=== PATIENT | male | born 1960 | race Hispanic/Latino ===

== ENCOUNTER 2024-09-21 07:19 | Emergency (ER) | payer BC ==
[2024-09-21 08:03] LABS: Specific Gravity 1.012 (1.005-1.030); Sqamous Epithelial <5 /HPF (None Seen); Urine Bacteria None Seen /HPF (<20); Urine Bilirubin NEGATIVE (Negative); Urine Blood 3+ (Negative); Urine Clarity Turbid (Clear); Urine Color Light-Yellow (Yellow); Urine Culture Reflex Order NOT NEEDED; Urine Glucose NEGATIVE (Negative); Urine Ketones NEGATIVE (Negative); Urine Microscopic Reflex YN ORDER UMIC; Urine Mucus Slight /HPF (None Seen); Urine Nitrite NEGATIVE (Negative); Urine Protein NEGATIVE (Negative); Urine RBC >50 /HPF (None Seen); Urine Urobilinogen Normal (Normal); Urine WBC <5 /HPF (<5)
--- NOTE | 2024-09-21 08:45 | ER ---
Nurse's Notes [facility] Name: Davonte Sagastume Age: 64 yrs Sex: Male : 1960 Arrival Date: 09/21/2024 Time: 07:19 Bed 6 Private MD: Diagnosis: Retention of urine, unspecified Presentation: 09/21 07:42 Chief complaint: Patient states: unable to urinate since yesterday. Coronavirus screen: iw At this time, the client does not indicate any symptoms associated with coronavirus-19. Ebola Screen: No symptoms or risks identified at this time. Initial Sepsis Screen: Does the patient meet any 2 criteria? No. Patient's initial sepsis screen is negative. Does the patient have a suspected source of infection? No. Patient's initial sepsis screen is negative. Risk Assessment: Do you want to hurt yourself or someone else? Patient reports no desire to harm self or others. Onset of symptoms was September 21, 2024. 07:42 Acuity: LENA 3 iw 07:42 Method Of Arrival: Ambulatory iw Historical: - Allergies: 07:43 No Known Allergies; iw - PMHx: 07:43 Hypercholesterolemia; Hypertensive disorder; enlarged prostate; iw - Immunization history:: Adult Immunizations up to date. - Infectious Disease History:: Denies. - Family history:: not pertinent. - Social history:: Smoking status: unknown. - Hospitalizations: : No recent hospitalization is reported. Screenin:37 [facility] ED Fall Risk Assessment (Adult) History of falling in the last 3 months, kc6 including since admission No falls in past 3 months (0 pts) Confusion or Disorientation No (0 pts) Intoxicated or Sedated No (0 pts) Impaired Gait No (0 pts) Mobility Assist Device Used No (0 pt) Altered Elimination No (0 pt) Score/Fall Risk Level 0 - 2 = Low Risk Oriented to surroundings, Maintained a safe environment, Educated pt \T\ family on fall prevention, incl call for assistance when getting out of bed. Abuse screen: Denies threats or abuse. Denies injuries from another. Nutritional screening: No deficits noted. Tuberculosis screening: No symptoms or risk factors identified. Assessment: 07:37 General: Appears in no apparent distress. uncomfortable, well groomed, well developed, kc6 Behavior is calm, cooperative, appropriate for age, restless. Pain: Complains of pain in pelvis. Neuro: Level of Consciousness is awake, alert, obeys commands, Oriented to person, place, time, situation, Appropriate for age. Cardiovascular: Capillary refill < 3 seconds. Respiratory: Airway is patent Trachea midline Respiratory effort is even, unlabored, Respiratory pattern is regular, symmetrical. GI: No signs and/or symptoms were reported involving the gastrointestinal system. : Reports cramping, inability to void, since yesterday pain in suprapubic area. EENT: No signs and/or symptoms were reported regarding the EENT system. Derm: No signs and/or symptoms reported regarding the dermatologic system. Skin is intact, is healthy with good turgor, Skin is pink, warm \T\ dry. Musculoskeletal: No signs and/or symptoms reported regarding the musculoskeletal system. Circulation, motion, and sensation intact. Range of motion: intact in all extremities. 10:03 Reassessment: Patient appears in no apparent distress at this time. Patient and/or ph family updated on plan of care and expected duration. Pain level reassessed. Patient is alert, oriented x 3, equal unlabored respirations, skin warm/dry/pink. Pt d/c home w/ Chase and leg bag in place, states that he will be following up w/ urology. Vital Signs: 07:48 BP 134 / 77; Pulse 66; Resp 16 S; Temp 98.3(O); Pulse Ox 95% on R/A; kc6 10:03 BP 134 / 78; Pulse 65; Resp 18; Temp 97.9; Pulse Ox 98% on R/A; ph ED Course: 07:22 Patient arrived in ED. im 07:22 Marvin Vela MD is Attending Physician. rn 07:33 Rosa M Duke, LUCRETIA is Primary Nurse. kc6 07:36 Patient has correct armband on for positive identification. Placed in gown. Bed in low kc6 position. Call light in reach. Side rails up X 1. Adult w/ patient. Pulse ox on. NIBP on. Door closed. Noise minimized. Lights dimmed. Warm blanket given. Pillow given. 07:38 Patient maintains SpO2 saturation greater than 95% on room air. kc6 07:42 Triage completed. iw 07:42 Chase cath inserted, using sterile technique, 16 Fr., by al, balloon inflated, to iw gravity drainage, urine specimen collected. 07:48 Arm band placed on. kc6 10:03 No provider procedures requiring assistance completed. Patient did not have IV access ph during this emergency room visit. 20:40 16 Fr removed due to excessive urine leakage. Chase intact. 18Fr inserted. balloon lg3 inflated to gravity drainage. Pt tolerated well. no leakage noted. 20:54 Attending Physician role handed off by Marvin Vela MD lg3 20:54 Primary Nurse role handed off by Rosa M Duke RN lg3 Administered Medications: No medications were administered Medication: 10:04 VIS not applicable for this client. ph Output: 08:00 Urine: 600ml (Chase); Total: 600ml. kc6 Outcome: 08:44 Discharge ordered by . rn 10:03 Discharged to home ambulatory, with family, ph 10:03 Condition: good 10:04 Discharge instructions given to patient, significant other, Instructed on discharge ph instructions, follow up and referral plans. medication usage, Demonstrated understanding of instructions, follow-up care, medications, Prescriptions given X 1, 10:04 Patient left the ED. ph 20:56 Patient left the ED. lg3 Signatures: Joy Ibrahim, RN RN Marvin Vela MD MD rn Hall, Patricia, RN RN ph Able, Lacie, RN RN lg3 Rosa M Duke RN RN kc6 Monique Calabrese
--- NOTE | 2024-09-21 08:45 | EDPHYS ---
Physician Documentation [facility] Name: Davonte Sagastume Age: 64 yrs Sex: Male : 1960 Arrival Date: 09/21/2024 Time: 07:19 Bed 6 Private MD: ED Physician HPI: 09/21 07:35 This 64 yrs old Male presents to ER via Unassigned with complaints of Urinary rn Problem. 07:35 The patient presents with urinary symptoms, unable to void. Onset: The symptoms/episode rn began/occurred this morning. Modifying factors: The symptoms are alleviated by nothing, the symptoms are aggravated by nothing. Severity of symptoms: At their worst the symptoms were moderate, in the emergency department the symptoms are unchanged. The patient has experienced similar episodes in the past. Pt reports unable to urinate since last night, dribbling this morning, no hematuria, has happened twice before, diagnosed with enlarged prostate, has had castro catheter in past. Not taking flomax. Has had prostate biopsies in past and were normal. . Historical: - Allergies: 07:43 No Known Allergies; iw - PMHx: 07:43 Hypercholesterolemia; Hypertensive disorder; enlarged prostate; iw - Immunization history:: Adult Immunizations up to date. - Infectious Disease History:: Denies. - Family history:: not pertinent. - Social history:: Smoking status: unknown. - Hospitalizations: : No recent hospitalization is reported. ROS: 07:35 Constitutional: Negative for fever, chills, and weight loss, Cardiovascular: Negative rn for chest pain, palpitations, and edema, Respiratory: Negative for shortness of breath, cough, wheezing, and pleuritic chest pain, Abdomen/GI: + suprapubic abd pain with constipation Back: Negative for injury and pain, : + urinary retention Neuro: Negative for headache, weakness, numbness, tingling, and seizure, Exam: 07:37 Constitutional: Patient ambulatory to room without assistance, appears uncomfortable, rn pacing in room Cardiovascular: Regular rate and rhythm. No pulse deficits. Abdomen/GI: Soft, nontender, no guarding or peritoneal signs. Neuro: Awake and alert, GCS 15, oriented to person, place, time, and situation. Motor strength 5/5 in all extremities. Sensory grossly intact. Normal gait. Vital Signs: 07:48 BP 134 / 77; Pulse 66; Resp 16 S; Temp 98.3(O); Pulse Ox 95% on R/A; kc6 10:03 BP 134 / 78; Pulse 65; Resp 18; Temp 97.9; Pulse Ox 98% on R/A; ph MDM: 07:22 Medical Screening Exam initiated rn 08:42 Differential diagnosis: UTI, urinary retention. Data reviewed: vital signs, nurses rn notes, lab test result(s), and as a result, I will discharge patient. Counseling: I had a detailed discussion with the patient and/or guardian regarding the historical points, exam findings, and any diagnostic results supporting the discharge/admit diagnosis, lab results, the need for outpatient follow up, to return to the emergency department if symptoms worsen or persist or if there are any questions or concerns that arise at home. Response to treatment: the patient's symptoms have markedly improved after treatment, the patient's symptoms have resolved after treatment, the patient's condition has returned to base line, the patient is now symptom free, and as a result, I will discharge patient. Special discussion: I discussed with the patient/guardian in detail that at this point there is no indication for admission to the hospital. It is understood, however, that if the symptoms persist or worsen the patient needs to return immediately for re-evaluation. Based on the history and exam findings, there is no indication for further emergent testing or inpatient evaluation. I discussed with the patient/guardian the need to see the urologist for further evaluation of the symptoms. ED course: Patient markedly improved after Castro catheter placement. Resting comfortably and sleeping. Will discharge home with Flomax and patient states has follow-up appointment scheduled.. 09/21 07:37 Order name: Urinalysis w/ reflexes; Complete Time: 08:04 rn 09/21 07:34 Order name: Castro; Complete Time: 07:36 rn Administered Medications: No medications were administered Disposition Summary: 09/21/24 08:44 Discharge Ordered Notes: Location: Home rn Problem: new rn Symptoms: have improved rn Condition: Stable rn Diagnosis - Retention of urine, unspecified rn Followup: rn - With: Private Physician - When: As needed - Reason: Recheck today's complaints, Re-evaluation by your physician Discharge Instructions: - Discharge Summary Sheet rn - Indwelling Urinary Catheter Care, Adult rn - Acute Urinary Retention, Male rn Forms: - Work release form iw - Medication Reconciliation Form rn - Antibiotic journalists and other writers - Prescription Opioid Use rn - Patient Portal Instructions rn - Leadership Thank You Letter rn Prescriptions: - Flomax 0.4 mg Oral capsule - take 1 capsule ORAL route every 24 hours; 30 capsule; Refills: 0, Product rn Selection Permitted Signatures: Dispatcher [employer] EDJoy Hernández, RN Marvin Mcfarland MD MD rn Campbell, Kaitlyn, RN RN kc6 Corrections: (The following items were deleted from the chart) 07:37 07:37 Urinalysis+U.LAB.BRZ ordered. [facility] EDSD 07:38 07:35 Constitutional: Negative for fever, chills, and weight loss, Cardiovascular: rn Negative for chest pain, palpitations, and edema, Respiratory: Negative for shortness of breath, cough, wheezing, and pleuritic chest pain, Abdomen/GI: Negative for abdominal pain, nausea, vomiting, diarrhea, and constipation, rn :38 07:35 Constitutional: Negative for fever, chills, and weight loss, Cardiovascular: rn Negative for chest pain, palpitations, and edema, Respiratory: Negative for shortness of breath, cough, wheezing, and pleuritic chest pain, Abdomen/GI: + suprapubic abd pain with constipation : + urinary retention rn :38 07:37 Constitutional: This is a well developed, well nourished patient who is awake, rn alert, and in no acute distress. rn
[2024-09-21 10:34] VITALS: BP 134/78; TEMP 97.9; O2SAT 98
== END 2024-09-21 20:56 | disposition home or self-care (01) ==
LOC: ER 07:19
DX: R33.9 Retention of urine, unspecified (principal)
CPT/HCPCS: 81001

== ENCOUNTER 2024-09-22 12:11 | Emergency (ER) | payer BC ==
--- NOTE | 2024-09-22 13:46 | EDPHYS ---
Physician Documentation [facility] Name: Davonte Sagastume Age: 64 yrs Sex: Male : 1960 Arrival Date: 09/22/2024 Time: 12:11 Bed 9 Private MD: ED Physician Marivn Vela HPI: 09/22 13:43 This 64 yrs old Male presents to ER via Ambulatory with complaints of Urinary rn Problem. 13:43 The patient presents with a Chase catheter problem, is not draining. Onset: The rn symptoms/episode began/occurred today. Modifying factors: The symptoms are alleviated by nothing, the symptoms are aggravated by nothing. Associated signs and symptoms: Pertinent negatives: fever, hematuria. Severity of symptoms:. The patient has not experienced similar symptoms in the past. Patient with recent Chase catheter placement here in the ER due to prostate problems. Reports today not draining urine and is concerned that the tubing is clogged. He has not noticed any blood. No fever or chills. Otherwise denies any abdominal pain.. Historical: - Allergies: 12:15 No Known Allergies; ll1 - PMHx: 12:15 enlarged prostate; Hypercholesterolemia; Hypertensive disorder; ll1 - Immunization history:: Adult Immunizations up to date. - Social history:: Smoking status: Patient denies any tobacco usage or history of. - Family history:: not pertinent. - Hospitalizations: : No recent hospitalization is reported. ROS: 13:43 Constitutional: Negative for fever, chills, and weight loss, Abdomen/GI: Negative for rn abdominal pain, nausea, vomiting, diarrhea, and constipation, : Reports Chase catheter not draining Exam: 13:43 Constitutional: This is a well developed, well nourished patient who is awake, alert, rn and in no acute distress. Abdomen/GI: Soft, nontender Male : Chase catheter in place, empty collection bag. Tubing appears clogged Vital Signs: 12:17 BP 167 / 86; Pulse 82; Resp 18; Temp 97.2; Pulse Ox 96% ; Pain 5/10; ll1 12:17 Pain Scale: Adult ll1 MDM: 12:22 Medical Screening Exam initiated rn 13:43 Differential diagnosis: Chase catheter problem. Data reviewed: vital signs, nurses rn notes, and as a result, I will discharge patient. Counseling: I had a detailed discussion with the patient and/or guardian regarding the historical points, exam findings, and any diagnostic results supporting the discharge/admit diagnosis, the need for outpatient follow up, to return to the emergency department if symptoms worsen or persist or if there are any questions or concerns that arise at home. Response to treatment: the patient's symptoms have resolved after treatment, and as a result, I will discharge patient. ED course: Initially distal tubing and bag replaced thinking was distal clogged, did not alleviate problems so entire Chase catheter was replaced. Small amount of blood following catheter but flushed and no clot and now draining. Will discharge home. Administered Medications: No medications were administered Disposition Summary: 09/22/24 13:45 Discharge Ordered Notes: Location: Home rn Problem: new rn Symptoms: have improved rn Condition: Stable rn Diagnosis - Other mechanical complication of urinary (indwelling) catheter rn Followup: rn - With: Private Physician - When: As needed - Reason: Recheck today's complaints, Re-evaluation by your physician Discharge Instructions: - Discharge Summary Sheet rn - Indwelling Urinary Catheter Care, Adult rn Forms: - Medication Reconciliation Form rn - Antibiotic supervisor modern languages - Prescription Opioid Use rn - Patient Portal Instructions rn - Leadership Thank You Letter rn Signatures: Marvin Vela MD MD rn Lewis, Lynsay, RN RN ll1
--- NOTE | 2024-09-22 13:46 | ER ---
Nurse's Notes [facility] Name: Davonte Sagastume Age: 64 yrs Sex: Male : 1960 Arrival Date: 09/22/2024 Time: 12:11 Bed 9 Private MD: Diagnosis: Other mechanical complication of urinary (indwelling) catheter Presentation: 09/22 12:15 Chief complaint: Patient states: Urinary catheter not draining correctly. Coronavirus ll1 screen: Client denies travel out of the [place] in the last 14 days. At this time, the client does not indicate any symptoms associated with coronavirus-19. Ebola Screen: Patient denies travel to an Ebola-affected area in the 21 days before illness onset. Initial Sepsis Screen: Does the patient meet any 2 criteria? No. Patient's initial sepsis screen is negative. Does the patient have a suspected source of infection? No. Patient's initial sepsis screen is negative. Risk Assessment: Do you want to hurt yourself or someone else? Patient reports no desire to harm self or others. Onset of symptoms was September 22, 2024. 12:15 Method Of Arrival: Ambulatory ll1 12:15 Acuity: LENA 4 ll1 Triage Assessment: 12:20 General: Appears uncomfortable, Behavior is calm, cooperative, appropriate for age. ll1 Pain: Complains of pain in pelvis Pain currently is 5 out of 10 on a pain scale. : Reports catheter not draining urine now. Historical: - Allergies: 12:15 No Known Allergies; ll1 - PMHx: 12:15 enlarged prostate; Hypercholesterolemia; Hypertensive disorder; ll1 - Immunization history:: Adult Immunizations up to date. - Social history:: Smoking status: Patient denies any tobacco usage or history of. - Family history:: not pertinent. - Hospitalizations: : No recent hospitalization is reported. Screenin:31 [facility] ED Fall Risk Assessment (Adult) History of falling in the last 3 months, jb4 including since admission No falls in past 3 months (0 pts) Confusion or Disorientation No (0 pts) Intoxicated or Sedated No (0 pts) Impaired Gait No (0 pts) Mobility Assist Device Used No (0 pt) Altered Elimination No (0 pt) Score/Fall Risk Level 0 - 2 = Low Risk Oriented to surroundings, Maintained a safe environment. Abuse screen: Denies threats or abuse. Nutritional screening: No deficits noted. Tuberculosis screening: No symptoms or risk factors identified. Assessment: 12:26 Reassessment: tried to change out leg bag, urine still not flowing properly. Had to ll1 check in as ED patient for ER physician to see him. 13:31 Reassessment: Patient appears in no apparent distress at this time. Patient and/or jb4 family updated on plan of care and expected duration. Pain level reassessed. Patient is alert, oriented x 3, equal unlabored respirations, skin warm/dry/pink. Castro changed, 20F castro in place per ER physician's instructions. No visible occlusion noted to prior castro. 14:00 Reassessment: Patient appears in no apparent distress at this time. Patient and/or jb4 family updated on plan of care and expected duration. Pain level reassessed. Patient is alert, oriented x 3, equal unlabored respirations, skin warm/dry/pink. Castro irrigated to ensure proper functioning per ER physicians instruction. While irrigating, pt able to urinate around the castro a little. Provider notified, okayed pt for discharge. Vital Signs: 12:17 BP 167 / 86; Pulse 82; Resp 18; Temp 97.2; Pulse Ox 96% ; Pain 5/10; ll1 12:17 Pain Scale: Adult ll1 ED Course: 12:14 Patient arrived in ED. al6 12:15 Triage completed. ll1 12:16 Arm band placed on Patient placed in an exam room, on a stretcher. ll1 12:22 Marvin Vela MD is Attending Physician. rn 13:32 No provider procedures requiring assistance completed. Castro cath inserted, using jb4 sterile technique, 20 Fr., by wy, balloon inflated, to gravity drainage, returned bloody urine. Patient tolerated well. Patient did not have IV access during this emergency room visit. 14:00 Patient has correct armband on for positive identification. Bed in low position. Call jb4 light in reach. Side rails up X 1. Provided Education on: plan of care. Administered Medications: No medications were administered Medication: 14:00 VIS not applicable for this client. jb4 Outcome: 13:45 Discharge ordered by . rn 14:07 Discharged to home ambulatory, jb4 14:07 Condition: stable 14:07 Discharge instructions given to patient, Instructed on discharge instructions, follow up and referral plans. Demonstrated understanding of instructions, follow-up care, 14:07 Patient left the ED. jb4 Signatures: Marvin Vela MD MD rn Bryson, James, RN RN jb4 Jonny Herzog RN RN ll1 Niki Milligan6 Corrections: (The following items were deleted from the chart) 12:20 12:17 BP 167 / 86; Resp 18bpm; Temp 97.2F; Pain /10, Adult; ll1 ll1
[2024-09-22 17:12] VITALS: BP 167/86; TEMP 97.2; O2SAT 96
== END 2024-09-22 14:07 | disposition home or self-care (01) ==
LOC: ER 12:11
DX: T83.098A Other mechanical complication of other urinary catheter, initial encounter (principal); N40.0 Benign prostatic hyperplasia without lower urinary tract symptoms

== ENCOUNTER 2024-10-22 01:07 | Emergency (ER) | payer BC, OTHER ==
--- NOTE | 2024-10-22 02:16 | EDPHYS ---
Physician Documentation [facility] Name: Davonte Sagastume Age: 64 yrs Sex: Male : 1960 Arrival Date: 10/22/2024 Time: 01:07 Bed 9 Private MD: ED Physician Azael Barriga HPI: 10/22 01:18 This 64 yrs old Male presents to ER via Unassigned with complaints of Urinary sp4 Retention, Pain. 16:08 Patient presents with acute urinary retention. This is his third episode of urinary sp4 retention. Historical: - Allergies: 02:10 No Known Allergies; ha1 - PMHx: 02:16 enlarged prostate; Hypercholesterolemia; Hypertensive disorder; ha1 - Immunization history:: Adult Immunizations up to date. - Infectious Disease History:: Denies. - Social history:: Smoking status: unknown. - Family history:: not pertinent. ROS: 16:08 Constitutional: Negative for fever, chills, and weight loss, acute urinary retention, sp4 positive acute bladder pain and discomfort. 16:08 All other systems are negative, Exam: 16:08 Constitutional: This is a well developed, well nourished patient who is awake, alert, sp4 and in no acute distress. Head/Face: Normocephalic, atraumatic. Eyes: Pupils equal round and reactive to light, extra-ocular motions intact. Lids and lashes normal. Conjunctiva and sclera are not injected. Cornea within normal limits. Periorbital areas with no swelling, redness, or edema. ENT: Nares patent. No nasal discharge, no septal abnormalities noted. Tympanic membranes are normal and external auditory canals are clear. Oropharynx with no redness, swelling, or masses, exudates, or evidence of obstruction, uvula midline. Mucous membranes moist. Neck: Trachea midline, no thyromegaly or masses palpated, and no cervical lymphadenopathy. Supple, full range of motion without nuchal rigidity, or vertebral point tenderness. Chest/axilla: Normal chest wall appearance and motion. Nontender with no deformity. No lesions are appreciated. Cardiovascular: Regular rate and rhythm with a normal S1 and S2. No gallops, murmurs, or rubs. Normal PMI, no JVD. No pulse deficits. Respiratory: Lungs have equal breath sounds bilaterally, clear to auscultation and percussion. No rales, rhonchi or wheezes noted. No increased work of breathing, no retractions or nasal flaring. Abdomen/GI: Soft, with normal bowel sounds. No distension or tympany. No guarding or rebound. No evidence of tenderness throughout. Back: No spinal tenderness. No costovertebral tenderness. Male : Normal genitalia with no discharge or lesions. Circumcised male, distended urinary bladder Skin: Warm, dry with normal turgor. Normal color with no rashes, no lesions, and no evidence of cellulitis. MS/ Extremity: Pulses equal, no cyanosis. Neurovascular intact. Full, normal range of motion. Neuro: Awake and alert, GCS 15, oriented to person, place, time, and situation. Cranial nerves II-XII grossly intact. Motor strength 5/5 in all extremities. Sensory grossly intact. Psych: Awake, alert, with orientation to person, place and time. Behavior, mood, and affect are within normal limits Vital Signs: 01:21 BP 179 / 101; Pulse 89; Resp 17 S; Temp 97.6(T); Pulse Ox 98% on R/A; Weight 90.72 kg; ha1 Height 5 ft. 8 in. ; Pain 10/10; 02:40 BP 165 / 84; Pulse 81; Resp 17 S; Pulse Ox 98% on R/A; ha1 01:21 Body Mass Index 30.41 (90.72 kg, 172.72 cm) ha1 01:21 Pain Scale: Adult ha1 Edilma Coma Score: 16:08 Eye Response: spontaneous(4). Motor Response: obeys commands(6). Verbal Response: sp4 oriented(5). Total: 15. MDM: 01:18 Medical Screening Exam initiated sp4 16:08 Differential diagnosis: nonspecific abdominal pain, urinary retention, prostatitis, sp4 urethritis. Data reviewed: vital signs, nurses notes, old medical records. ED course: Chase catheter was placed by the RN. Pain was relieved. Patient stable for discharge. 10/22 01:48 Order name: Chase; Complete Time: 02:03 ha1 10/22 02:14 Order name: Leg Bag; Complete Time: 02:53 sp4 Administered Medications: No medications were administered Disposition: 16:10 Chart complete. sp4 Disposition Summary: 10/22/24 02:15 Discharge Ordered Notes: Location: Home sp4 Problem: new sp4 Symptoms: have improved sp4 Condition: Stable sp4 Diagnosis - Retention of urine, unspecified sp4 - History of prostatic hypertrophy, acute urinary retention sp4 Followup: sp4 - With: Private Physician - When: 10 - 14 days - Reason: Recheck today's complaints Discharge Instructions: - Discharge Summary Sheet sp4 - Acute Urinary Retention, Male sp4 Forms: - Patient Portal Instructions sp4 Signatures: Mayra West RN RN ha1 Azael Barriga MD MD sp4 Corrections: (The following items were deleted from the chart) 04:06 02:10 Allergies: No Known Allergies; ha1 ha1
--- NOTE | 2024-10-22 02:16 | ER ---
Nurse's Notes [facility] Name: Davonte Sagastume Age: 64 yrs Sex: Male : 1960 Arrival Date: 10/22/2024 Time: 01:07 Bed 9 Private MD: Diagnosis: Retention of urine, unspecified;History of prostatic hypertrophy, acute urinary retention Presentation: 10/22 01:21 Chief complaint: Patient states: I HAD MOSQUEDA CATHETER INSERTED A MONTH AGO BECAUSE I ha1 WAS HAVING DIFFICULTY URINATING. I WENT TO SEE MY UROLOGY AND HE REMOVED MY MOSQUEDA FIVE DAYS AGO AND NOW I CAN NOT URINATE AGAIN. 01:21 Coronavirus screen: Client denies travel out of the [place] in the last 14 days. Ebola ha1 Screen: No symptoms or risks identified at this time. Initial Sepsis Screen: Does the patient meet any 2 criteria? No. Patient's initial sepsis screen is negative. Does the patient have a suspected source of infection? No. Patient's initial sepsis screen is negative. Risk Assessment: Do you want to hurt yourself or someone else? Patient reports no desire to harm self or others. Onset of symptoms was October 22, 2024. 01:21 Method Of Arrival: Ambulatory ha1 01:21 Acuity: LENA 4 ha1 Triage Assessment: : General: Appears uncomfortable, Behavior is cooperative. Pain: Complains of pain in ha1 pelvis Pain currently is 10 out of 10 on a pain scale. Quality of pain is described as pressure. Neuro: Level of Consciousness is awake, alert, obeys commands, Oriented to person, place, time, situation. Cardiovascular: Patient's skin is warm and dry. Respiratory: Airway is patent Respiratory effort is even, unlabored, Respiratory pattern is regular, symmetrical. : Reports inability to void. Historical: - Allergies: 02:10 No Known Allergies; ha1 - PMHx: 02:16 enlarged prostate; Hypercholesterolemia; Hypertensive disorder; ha1 - Immunization history:: Adult Immunizations up to date. - Infectious Disease History:: Denies. - Social history:: Smoking status: unknown. - Family history:: not pertinent. Screenin: Abuse screen: Denies threats or abuse. Denies injuries from another. 1 01:21 [facility] ED Fall Risk Assessment (Adult) History of falling in the last 3 months, ha1 including since admission No falls in past 3 months (0 pts) Confusion or Disorientation No (0 pts) Intoxicated or Sedated No (0 pts) Impaired Gait No (0 pts) Mobility Assist Device Used No (0 pt) Altered Elimination No (0 pt) Score/Fall Risk Level 0 - 2 = Low Risk Oriented to surroundings, Maintained a safe environment, Educated pt \T\ family on fall prevention, incl call for assistance when getting out of bed, Hourly rounding (assess needs \T\ fall precautionary measures) done. Nutritional screening: No deficits noted. Tuberculosis screening: No symptoms or risk factors identified. Assessment: 01:21 Reassessment: see triage assessment. ha1 Vital Signs: 01:21 BP 179 / 101; Pulse 89; Resp 17 S; Temp 97.6(T); Pulse Ox 98% on R/A; Weight 90.72 kg; ha1 Height 5 ft. 8 in. ; Pain 10/10; 02:40 BP 165 / 84; Pulse 81; Resp 17 S; Pulse Ox 98% on R/A; ha1 01:21 Body Mass Index 30.41 (90.72 kg, 172.72 cm) ha1 01:21 Pain Scale: Adult ha Edilma Coma Score: 16:08 Eye Response: spontaneous(4). Motor Response: obeys commands(6). Verbal Response: sp4 oriented(5). Total: 15. ED Course: 01:12 Patient arrived in ED. gm2 01:18 Azael Barriga MD is Attending Physician. sp4 01:21 Patient has correct armband on for positive identification. Bed in low position. Call ha1 light in reach. Side rails up X 1. Adult w/ patient. Provided Education on: Mosqueda catheter . 01:21 Arm band placed on right wrist. ha1 02:00 No provider procedures requiring assistance completed. ha1 02:00 Patient did not have IV access during this emergency room visit. ha1 02:04 Mosqueda cath inserted, using sterile technique, Patient tolerated well. oe 02:10 Triage completed. ha1 Administered Medications: No medications were administered Medication: 02:40 VIS not applicable for this client. ha1 Outcome: 02:15 Discharge ordered by . sp4 02:40 Patient left the ED. ha1 02:40 Discharged to home ambulatory, with family, ha1 02:40 Condition: stable 02:40 Discharge instructions given to patient, family, Instructed on discharge instructions, follow up and referral plans. Demonstrated understanding of instructions, follow-up care, Signatures: Baljit Anaya Heidy, RN RN ha1 Azael Barriga MD MD sp4 Cris Martinez gm2 Corrections: (The following items were deleted from the chart) 04:06 02:10 Allergies: No Known Allergies; ha1 ha1 05:41 02:53 Patient left the ED. ha1 ha1
[2024-10-22 03:00] VITALS: BP 179/101; TEMP 97.6; O2SAT 98
== END 2024-10-22 02:53 | disposition home or self-care (01) ==
LOC: ER 01:07
DX: R33.9 Retention of urine, unspecified (principal); N40.0 Benign prostatic hyperplasia without lower urinary tract symptoms
CPT/HCPCS: 51702; 99284

== ENCOUNTER 2025-05-05 17:33 | Emergency (ER) | payer BC, OTHER ==
--- NOTE | 2025-05-05 17:52 | EDPHYS ---
Physician Documentation [facility] Name: Davonte Sagastume Age: 65 yrs Sex: Male : 1960 Arrival Date: 05/05/2025 Time: 17:33 Bed 11 Private MD: ED Physician Marvin Vela HPI: 05/05 19:30 This 65 yrs old Male presents to ER via Ambulatory with complaints of picc dr5 line problem. 19:30 Onset: The symptoms/episode began/occurred acutely. Patient is a 65-year-old male with dr5 history of enlarged prostate, hyperlipidemia, hypertension coming in with PICC line to right upper arm with PICC line dressing last changed on Friday. Patient reports he works outside and sweats a lot and bandages almost coming off. Patient denies any other symptoms of bleeding or issues using PICC line.. Historical: - Allergies: 17:46 No Known Allergies; dd2 - PMHx: 17:46 enlarged prostate; Hypercholesterolemia; Hypertensive disorder; dd2 - PSHx: 17:46 None; dd2 - Immunization history:: Adult Immunizations up to date. - Infectious Disease History:: Denies. - Social history:: Smoking status: . ROS: 19:31 Constitutional: as per hpi dr5 Exam: 19:31 Constitutional: This is a well developed, well nourished patient who is awake, alert, dr5 and in no acute distress. Head/Face: Normocephalic, atraumatic. Eyes: Pupils equal round and reactive to light, extra-ocular motions intact. Lids and lashes normal. Conjunctiva and sclera are non-icteric and not injected. Cornea within normal limits. Periorbital areas with no swelling, redness, or edema. ENT: Nares patent. No nasal discharge, no septal abnormalities noted. Tympanic membranes are normal and external auditory canals are clear. Oropharynx with no redness, swelling, or masses, exudates, or evidence of obstruction, uvula midline. Mucous membranes moist. Chest/axilla: Normal chest wall appearance and motion. Nontender with no deformity. No lesions are appreciated. Cardiovascular: Regular rate and rhythm with a normal S1 and S2. Normal PMI, no JVD. No pulse deficits. Respiratory: Lungs have equal breath sounds bilaterally, clear to auscultation. No rales, rhonchi or wheezes noted. No increased work of breathing, no retractions or nasal flaring. Abdomen/GI: Soft, non-tender, non-distended Back: No spinal tenderness. No costovertebral tenderness. Full range of motion. Skin: Warm, dry with normal turgor. Normal color with no rashes, no lesions, and no evidence of cellulitis. PICC line dressing intact but barely holding on. MS/ Extremity: Pulses equal, no cyanosis. Neurovascular intact. Full, normal range of motion. Neuro: Awake and alert, GCS 15, oriented to person, place, time, and situation. Cranial nerves II-XII grossly intact. Motor strength 5/5 in all extremities. Sensory grossly intact. Cerebellar exam normal. Normal gait. Vital Signs: 17:45 BP 145 / 79; Pulse 78; Resp 16; Temp 98.5; Pulse Ox 98% ; Pain 0/10; dd2 17:54 BP 141 / 76; Pulse 76; Resp 18; Pulse Ox 98% on R/A; dd2 17:45 Pain Scale: Adult dd2 MDM: 17:42 Medical Screening Exam initiated dr5 19:31 Differential diagnosis: PICC line issue, dressing change, bleeding from PICC line. Data dr5 reviewed: vital signs, nurses notes. Consideration of Admission/Observation Escalation of care including admission/observation considered. Escalation considered patient found to have clotted PICC line. I considered the following discharge prescriptions or medication management in the emergency department I discussed and recommended Over The Counter medications. Test considered but Not performed: Ultrasound Ultrasound considered but not due to patient having swelling or redness. Historians other than the Patient: Spouse/Significant Other: at bedside. Care significantly affected by the following chronic conditions: Hyperlipidemia, hypertension, enlarged prostate. Care significantly affected by the following Social Determinants of Health: Poor access to healthcare and/or lack of insurance, Poor access to transportation, Problems related to employment. Counseling: I had a detailed discussion with the patient and/or guardian regarding the historical points, exam findings, and any diagnostic results supporting the discharge/admit diagnosis, the presence of at least one elevated blood pressure reading (>120/80) during this emergency department visit, the need for outpatient follow up, for definitive care, a family practitioner. Special discussion: I have referred the patient to see his PCP for further evaluation of high blood pressure. I discussed with the patient/guardian in detail that at this point there is no indication for admission to the hospital. It is understood, however, that if the symptoms persist or worsen the patient needs to return immediately for re-evaluation. Based on the history and exam findings, there is no indication for further emergent testing or inpatient evaluation. I discussed with the patient/guardian the need to see the primary care provider for further evaluation of the symptoms. ED course: PICC line dressing changed in ER. No other issues. Recommended patient have dressing change at regular intervals and if not able to get it done, return here. All strict ER precautions given. All questions answered.. 05/05 17:47 Order name: Dressing - Wound: Right PICC line dressing change please; Complete Time: dr5 17:53 Administered Medications: No medications were administered Disposition Summary: 05/05/25 17:51 Discharge Ordered Notes: Location: Home dr5 Condition: Stable dr5 Diagnosis - Encounter for change or removal of nonsurgical wound dressing dr5 Followup: dr5 - With: Emergency Department - When: As needed - Reason: Worsening of condition Followup: dr5 - With: Private Physician - When: 1 - 2 days - Reason: Recheck today's complaints, Continuance of care, Re-evaluation by your physician Discharge Instructions: - Discharge Summary Sheet dr5 - PICC Insertion, Care After dr5 Forms: - Medication Reconciliation Form dr5 - Patient Portal Instructions dr5 - Leadership Thank You Letter dr5 Signatures: CARSON MANCIA RN RN dd2 Tam Rucker, WEIGH BOX TENDER-C WEIGH BOX TENDER-Cdr5
--- NOTE | 2025-05-05 17:52 | ER ---
Nurse's Notes [facility] Name: Davonte Sagastume Age: 65 yrs Sex: Male : 1960 Arrival Date: 05/05/2025 Time: 17:33 Bed 11 Private MD: Diagnosis: Encounter for change or removal of nonsurgical wound dressing Presentation: 05/05 17:45 Chief complaint: Patient states: HERE TO HAVE PICC DRESSING CHANGED. Coronavirus dd2 screen: At this time, the client does not indicate any symptoms associated with coronavirus-19. Ebola Screen: No symptoms or risks identified at this time. Initial Sepsis Screen: Does the patient meet any 2 criteria? No. Patient's initial sepsis screen is negative. Does the patient have a suspected source of infection? No. Patient's initial sepsis screen is negative. Risk Assessment: Do you want to hurt yourself or someone else? Patient reports no desire to harm self or others. Onset of symptoms was May 05, 2025. 17:45 Method Of Arrival: Ambulatory dd2 17:45 Acuity: LENA 5 dd2 Triage Assessment: 17:46 General: Appears in no apparent distress. comfortable, Behavior is calm, cooperative, dd2 appropriate for age. Pain: Denies pain. EENT: No deficits noted. No signs and/or symptoms were reported regarding the EENT system. Neuro: No deficits noted. Cardiovascular: No deficits noted. Respiratory: No deficits noted. GI: No deficits noted. No signs and/or symptoms were reported involving the gastrointestinal system. : No deficits noted. No signs and/or symptoms were reported regarding the genitourinary system. Derm: PICC LINE TO RT UPPER ARM, DRESSING NOT INTACT. Musculoskeletal: No deficits noted. No signs and/or symptoms reported regarding the musculoskeletal system. Historical: - Allergies: 17:46 No Known Allergies; dd2 - PMHx: 17:46 enlarged prostate; Hypercholesterolemia; Hypertensive disorder; dd2 - PSHx: 17:46 None; dd2 - Immunization history:: Adult Immunizations up to date. - Infectious Disease History:: Denies. - Social history:: Smoking status: . Screenin:[address] [facility] ED Fall Risk Assessment (Adult) History of falling in the last 3 months, dd2 including since admission No falls in past 3 months (0 pts) Confusion or Disorientation No (0 pts) Intoxicated or Sedated No (0 pts) Impaired Gait No (0 pts) Mobility Assist Device Used No (0 pt) Altered Elimination No (0 pt) Score/Fall Risk Level 0 - 2 = Low Risk Oriented to surroundings, Maintained a safe environment, Educated pt \T\ family on fall prevention, incl call for assistance when getting out of bed, Assessed \T\ reinforced patient's understanding of fall precautions. Abuse screen: Denies threats or abuse. Denies injuries from another. Nutritional screening: No deficits noted. Tuberculosis screening: No symptoms or risk factors identified. Assessment: 17:48 Reassessment: SEE TRIAGE ASSESSMENT FOR FULL ASSESSMENT. dd2 Vital Signs: 17:45 BP 145 / 79; Pulse 78; Resp 16; Temp 98.5; Pulse Ox 98% ; Pain 0/10; dd2 17:54 BP 141 / 76; Pulse 76; Resp 18; Pulse Ox 98% on R/A; dd2 17:45 Pain Scale: Adult dd2 ED Course: 17:36 Patient arrived in ED. im 17:41 [facility] 17:42 Marvin Vela MD is Attending Physician. dr5 17:46 Triage completed. dd2 17:46 Arm band placed on right wrist. dd2 17:48 Patient has correct armband on for positive identification. dd2 17:48 No provider procedures requiring assistance completed. Patient did not have IV access dd2 during this emergency room visit. 17:53 Dressings: RT UPPER ARM PICC LINE STERILE DRESSING CHANGE. dd2 17:54 Provided Education on: D/C EDUCATION. dd2 Administered Medications: No medications were administered Medication: 17:48 VIS not applicable for this client. dd2 Outcome: 17:51 Discharge ordered by . dr5 17:54 Discharged to home ambulatory, dd2 17:54 Condition: good 17:54 Discharge instructions given to patient, Instructed on discharge instructions, follow up and referral plans. Demonstrated understanding of instructions, follow-up care, 17:56 Patient left the ED. dd2 Signatures: Monique Calabrese DIANA RN RN dd2 Tam Rucker FNP-C SEISMOGRAPHER-[id number]
[2025-05-05 18:14] VITALS: TEMP 98.5; O2SAT 98
[2025-05-05 18:15] VITALS: BP 141/76
== END 2025-05-05 17:56 | disposition home or self-care (01) ==
LOC: ER 17:33
DX: Z48.00 Encounter for change or removal of nonsurgical wound dressing (principal)
CPT/HCPCS: 99283

== ENCOUNTER 2025-05-05 22:17 | Emergency (ER) | payer BC, OTHER ==
--- NOTE | 2025-05-06 00:05 | EDPHYS ---
Physician Documentation [facility] Name: Davonte Sagastume Age: 65 yrs Sex: Male : 1960 Arrival Date: 05/05/2025 Time: 22:17 Bed 12 Private MD: ED Physician Peter Fleming HPI: 05/06 01:53 This 65 yrs old Male presents to ER via Ambulatory with complaints of PICC tt7 Line leaking. 01:53 Patient has a midline to his right upper extremity which she has been receiving 2 g IV tt7 cefepime every 8 hours for treatment of prostatitis, he came in earlier today for a dressing change and when patient's spouse tried to infuse his antibiotic dose this evening the midline was leaking from the tubing, it appears that the tubing might have been cut or damaged during the dressing change. Historical: - Allergies: 05/05 22:42 No Known Allergies; jj7 - PMHx: 22:42 enlarged prostate; Hypercholesterolemia; Hypertensive disorder; jj7 - PSHx: 22:42 None; jj7 - Immunization history:: Adult Immunizations not up to date. - Infectious Disease History:: Denies. - Social history:: Smoking status: Patient denies any tobacco usage or history of. Patient/guardian denies using alcohol, street drugs, IV drugs. ROS: 05/06 01:54 Constitutional: negative for fever. Cardiovascular: negative for chest pain. tt7 Respiratory: negative for shortness of breath. Abdomen/GI: negative for abdominal pain, nausea, vomiting, diarrhea. MS/Extremity: negative for injury and deformity. Skin: negative for rash. Neuro: negative for focal weakness. Exam: 01:55 Constitutional: vital signs reviewed, well appearing. Constitutional: vital signs tt7 reviewed, well appearing Head: normocephalic Eyes: no conjunctival injection, anicteric sclerae ENMT: mucus membranes moist Neck: trachea midline, no JVD Respiratory: normal respiratory effort, no accessory muscle use, no audible wheezing Cardiovascular: Regular rate and rhythm, no lower extremity edema Abdomen: nondistended MSK: normal ROM of extremities, no gross deformities Skin: warm, dry, intact Neuro: alert and oriented with appropriate mental status, normal speech, follows commands, no focal neurologic deficits Psych: appropriate mood and affect Vital Signs: 05/05 22:35 BP 152 / 89; Pulse 70; Resp 17; Temp 97.8; Pulse Ox 97% ; Weight 92.99 kg; Height 5 ft. jj7 7 in. ; Pain 0/10; 05/06 00:00 BP 135 / 87; Pulse 67; Resp 20; Pulse Ox 99% ; Pain 0/10; jj7 01:00 BP 131 / 81; Pulse 63; Resp 20; Temp 98.1; Pulse Ox 99% ; Pain 0/10; 7 05/05 22:35 Body Mass Index 32.11 (92.99 kg, 170.18 cm) [facility] 05/05 22:35 Pain Scale: Adult jj7 05/06 00:00 Pain Scale: Adult jj7 01:00 Pain Scale: Adult jj7 MDM: 05/05 23:01 Medical Screening Exam initiated tt7 05/06 01:55 Differential Diagnosis Vascular access problem. Data reviewed: vital signs, nurses tt7 notes. ED course: Midline does appear to be damaged, will not function for intended cause, I attempted to have the vascular access team, place a new midline, I was told that greenhouse grower had to be the one to be able to approve them coming in, apparently vascular access team will not come place a new midline because they were not the ones that placed at the original midline, that was relayed information that despite our staff potentially causing the damage to the midline that the patient could not have the midline replaced at our facility, IV access was obtained and patient was administered 2 g dose of cefepime, I had discussion with the patient and spouse that he needed to call his infectious disease physician first thing in the morning to arrange for him to have a new midline placed, I advised them that if this cannot be completed by the time that his next dosage of cefepime is due to please return to the emergency department and we will administer another dose of cefepime, after completion of the patient's emergency department evaluation, I do not suspect a life-threatening or disabling process. Patient is medically stable and not in need of emergent medical intervention. I had a detailed discussion with the patient regarding the historical points, exam findings, emergency department evaluation, diagnostic results, and the discharge diagnosis. I instructed the patient on outpatient management of their condition. I discussed the need for outpatient follow-up with a primary care physician. I informed the patient on return precautions, including the need to return to the ED if symptoms do not improve, worsen, or if there are any questions or concerns that arise at home. The patient was discharged in stable condition. 05/05 23:34 Order name: MEAGHAN Joshi x3; Complete Time: 23:37 tt7 Administered Medications: 00:20 Drug: Cefepime IVPB 2 grams IVPB at 200 ml/hr once over 30 mins; (mix in NS 100 mL) jj7 Route: IVPB; Rate: 200 ml/hr; Infused Over: 30 mins; Site: left antecubital; 01:00 Follow up: IV Status: Completed infusion jj7 Disposition: 01:58 Co-signature as Attending Physician, Peter Fleming DO. tt7 Disposition Summary: 05/06/25 00:04 Discharge Ordered Notes: Location: Home tt7 Problem: chronic tt7 Symptoms: are unchanged tt7 Condition: Stable tt7 Diagnosis - Encounter for adjustment and management of vascular access device tt7 Followup: tt7 - With: Emergency Department - When: As needed - Reason: Followup: tt7 - With: Private Physician - When: Today - Reason: Recheck today's complaints, Continuance of care, Re-evaluation by your physician Discharge Instructions: - Discharge Summary Sheet tt7 - Midline Catheter tt7 Forms: - Medication Reconciliation Form tt7 - Antibiotic Education tt7 - Prescription Opioid Use tt7 - Patient Portal Instructions tt7 - Leadership Thank You Letter tt7 Signatures: Maylin Hall RN RN jj7 Peter Fleming DO DO tt7
--- NOTE | 2025-05-06 00:05 | ER ---
Nurse's Notes [facility] Name: Davonte Sagastume Age: 65 yrs Sex: Male : 1960 Arrival Date: 05/05/2025 Time: 22:17 Bed 12 Private MD: Diagnosis: Encounter for adjustment and management of vascular access device Presentation: 05/05 22:35 Chief complaint: Patient states: CAME TO ER [facility] TO HAVE HIS MIDLINE DRESSING jj7 CHANGED. STATES SHE THINKS THEY MAY HAVE SLICED THE LINE BECAUSE IT'S LEAKING WHEN SHE FLUSHES IT WITH NS. Coronavirus screen: At this time, the client does not indicate any symptoms associated with coronavirus-19. Ebola Screen: No symptoms or risks identified at this time. Initial Sepsis Screen: Does the patient meet any 2 criteria? No. Patient's initial sepsis screen is negative. Does the patient have a suspected source of infection? No. Patient's initial sepsis screen is negative. Risk Assessment: Do you want to hurt yourself or someone else? Patient reports no desire to harm self or others. Onset of symptoms was May 05, 2025. 22:35 Method Of Arrival: Ambulatory [facility] 22:35 Acuity: LENA 4 jj7 Triage Assessment: 22:35 General: Appears in no apparent distress. comfortable, Behavior is calm, cooperative, jj7 appropriate for age. Pain: Denies pain. EENT: No deficits noted. Neuro: No deficits noted. Cardiovascular: No deficits noted. Respiratory: No deficits noted. GI: No deficits noted. : No deficits noted. Derm: No deficits noted. Musculoskeletal: No deficits noted. Historical: - Allergies: 22:42 No Known Allergies; jj7 - PMHx: 22:42 enlarged prostate; Hypercholesterolemia; Hypertensive disorder; jj7 - PSHx: 22:42 None; jj7 - Immunization history:: Adult Immunizations not up to date. - Infectious Disease History:: Denies. - Social history:: Smoking status: Patient denies any tobacco usage or history of. Patient/guardian denies using alcohol, street drugs, IV drugs. Screenin:48 [facility] ED Fall Risk Assessment (Adult) History of falling in the last 3 months, cp4 including since admission No falls in past 3 months (0 pts) Confusion or Disorientation No (0 pts) Intoxicated or Sedated No (0 pts) Impaired Gait No (0 pts) Mobility Assist Device Used No (0 pt) Altered Elimination No (0 pt) Score/Fall Risk Level 0 - 2 = Low Risk Oriented to surroundings, Maintained a safe environment, Assessed \T\ reinforced patient's understanding of fall precautions, Hourly rounding (assess needs \T\ fall precautionary measures) done. Abuse screen: Denies threats or abuse. Denies injuries from another. Nutritional screening: No deficits noted. Tuberculosis screening: No symptoms or risk factors identified. Assessment: 22:48 General: Appears in no apparent distress. comfortable, Behavior is calm, cooperative, cp4 appropriate for age. Pain: Denies pain. Neuro: Level of Consciousness is awake, alert, obeys commands, Oriented to person, place, time, situation. Cardiovascular: Patient's skin is warm and dry. Respiratory: Airway is patent Respiratory effort is even, unlabored. GI: No signs and/or symptoms were reported involving the gastrointestinal system. : No signs and/or symptoms were reported regarding the genitourinary system. EENT: No signs and/or symptoms were reported regarding the EENT system. Derm: No signs and/or symptoms reported regarding the dermatologic system. Musculoskeletal: No signs and/or symptoms reported regarding the musculoskeletal system. 23:45 Reassessment: PT AND STATES MIDLINE WAS INSERTED AT [facility]. DEIDRE MERAZ jj7 STATES THAT OUR PICC SERVICES ARE ONLY OFFERED TO OUR ADMITTED PT'S. IT IS NOT AN OUTPATIENT SERVICE. EXPLAINED TO FAMILY THIS IS THE. 23:53 Reassessment: MIDLINE ASSESSED FOLLOWING SEPTIC TECHNIQUE. LINE HAS A SLICE AND IS jj7 LEAKING WITH EACH FLUSH. NO PAIN OR DISCOMFORT WITH FLUSHING. MILD REDNESS AT INSERTION SITE, BUT NO PAIN OR PHLEBITIS NOTED. NEW DRESSING APPLIED. 05/06 00:04 Reassessment: PT NEEDS DOSE OF ANTIBIOTICS. MD RANDALL SPOKE WITH PT AND HE IS jj7 COMFORTABLE GETTING AN IV INSERTED TO GET IV ANYTIBIOTICS. Vital Signs: 05/05 22:35 BP 152 / 89; Pulse 70; Resp 17; Temp 97.8; Pulse Ox 97% ; Weight 92.99 kg; Height 5 ft. jj7 7 in. ; Pain 0/10; 05/06 00:00 BP 135 / 87; Pulse 67; Resp 20; Pulse Ox 99% ; Pain 0/10; jj7 01:00 BP 131 / 81; Pulse 63; Resp 20; Temp 98.1; Pulse Ox 99% ; Pain 0/10; jj7 05/05 22:35 Body Mass Index 32.11 (92.99 kg, 170.18 cm) jj7 05/05 22:35 Pain Scale: Adult jj7 05/06 00:00 Pain Scale: Adult jj7 01:00 Pain Scale: Adult j7 ED Course: 05/05 22:18 Patient arrived in ED. mr 22:35 Arm band placed on right wrist. Patient placed in an exam room, on a stretcher. jj7 22:41 Triage completed. jj7 22:48 Winter Nicole is Primary Nurse. cp4 22:48 Bed in low position. Call light in reach. Side rails up X 1. cp4 22:48 No provider procedures requiring assistance completed. cp4 23:01 Peter Randall DO is Attending Physician. tt7 05/06 00:20 Inserted saline lock: 20 gauge in left antecubital area, using aseptic technique. jj7 Flushed with 10 mL NS. 01:01 IV discontinued, intact, bleeding controlled, No redness/swelling at site. Pressure jj7 dressing applied. Administered Medications: 00:20 Drug: Cefepime IVPB 2 grams IVPB at 200 ml/hr once over 30 mins; (mix in NS 100 mL) jj7 Route: IVPB; Rate: 200 ml/hr; Infused Over: 30 mins; Site: left antecubital; 01:00 Follow up: IV Status: Completed infusion jj7 Medication: 05/05 22:48 VIS not applicable for this client. cp4 Outcome: 05/06 00:04 Discharge ordered by . tt7 01:00 Discharged to home ambulatory, with significant other, jj7 01:00 Condition: good 01:00 Discharge instructions given to patient, family, Instructed on discharge instructions, follow up and referral plans. Demonstrated understanding of instructions, follow-up care, 01:01 Patient left the ED. jj7 Signatures: Iram Mclaughlin, Reg Jeremy mr Maylin Hall RN RN jjWinter Pierson cp4 Peter Randall DO DO tt7 Corrections: (The following items were deleted from the chart) 01:00 00:20 BP 135 / 87; Pulse 67bpm; Resp 20bpm; Pulse Ox 99%; Pain 0/10, Adult; jj7 jj7
[2025-05-06] MEDS ORDERED: CEFEPIME 2 GM VIAL ONE (00:11)
[2025-05-06] MEDS ORDERED: NA CHLORIDE 0.9% 100 ML ONE (00:11)
[2025-05-06 01:24] VITALS: O2SAT 99
[2025-05-06 01:25] VITALS: BP 131/81; TEMP 98.1
== END 2025-05-06 01:01 | disposition home or self-care (01) ==
LOC: ER 22:17
DX: Z45.2 Encounter for adjustment and management of vascular access device (principal)
CPT/HCPCS: 96365; 99284; J0692